=== PATIENT | male | born 1960 | race Asian ===

== ENCOUNTER 2018-12-04 12:56 | Emergency (ER) | payer SELFPAY ==
[2018-12-04] MEDS: DIPHTH/TET/ACEL PERTUSS (ADULT) 0.5 ML VIAL IM* (13:28)
== END 2018-12-04 14:03 | disposition home or self-care (01) ==
LOC: FTE 14:03
DX: S01.85XA Open bite of other part of head, initial encounter (principal); W54.0XXA Bitten by dog, initial encounter; Y92.9 Unspecified place or not applicable; Z23 Encounter for immunization
CPT/HCPCS: 90471; 90715; 99283-25